=== PATIENT | male | born 1980 | race Caucasian/White ===

== ENCOUNTER → 2017-07-09 | Outpatient (CLI) | payer BC ==
--- NOTE | 2017-07-09 14:45 | RAD ---
Indication:Abnormal liver function tests Grayscale images of the abdomen were obtained. Comparison none Liver:No focal mass lesion is seen in the visualized liver. Gallbladder:There is a nonshadowing focus attached to the wall of the gallbladder compatible with a polyp. No definite choledocholithiasis is seen. The common bile duct diameter of approximately 3 mm is normal Spleen:Mildly enlarged but otherwise normal Pancreas:As visualized normal Kidneys:Normal Abdominal aorta and IVC:Normal Ancillary findings:None Impression:Probable gallbladder polyp. Mild splenic enlargement
== END | disposition home or self-care (01) ==
LOC: US 13:18
DX: R16.1 Splenomegaly, not elsewhere classified (principal); R94.5 Abnormal results of liver function studies
CPT/HCPCS: 76700

== ENCOUNTER → 2018-10-04 | Outpatient (CLI) | payer BC ==
--- NOTE | 2018-10-04 12:33 | RAD ---
EXAM: Abdomen sonogram. HISTORY: Abnormal liver enzymes laboratory values. TECHNIQUE: Sonographic imaging of the abdomen was performed. COMPARISON: None. FINDINGS: The liver is normal in size. No focal hepatic lesion is seen. There are few nonmobile echogenic foci along the gallbladder wall, likely polyps. The largest of these measures 4 mm. The gallbladder is otherwise unremarkable. The right kidney is unremarkable. The common bile duct is unremarkable. The spleen is upper normal in size. The pancreas, aorta and inferior vena cava are unremarkable. IMPRESSION: 1. Suspected small gallbladder polyps, the largest of which measures 4 mm. 2. Otherwise, unremarkable abdomen sonogram. Electronically signed by: Mary Fuller MD (10/04/2018 12:29 PM) [id number]
== END | disposition home or self-care (01) ==
LOC: US 10:51
PROVIDERS: ATTEND Family Medicine
DX: R74.0 Nonspecific elevation of levels of transaminase and lactic acid dehydrogenase [LDH] (principal)
CPT/HCPCS: 76700